=== PATIENT | female | born 1940 | race Caucasian/White ===

== ENCOUNTER 2024-10-21 01:18 | Observation (INO) | payer OTHER, SELFPAY ==
[2024-10-20 19:53] VITALS: BP 125/73
[2024-10-20 20:00] LABS: Glucose - Point of Care 81 mg/dl (70-99)
[2024-10-20 21:41] VITALS: BP 129/68
[2024-10-20 22:00] VITALS: BMI 19.4
[2024-10-20 22:01] VITALS: BP 120/68
[2024-10-20 22:18] LABS: % Basophils 0.5 % (0-2); % Eosinophils 1.2 % (0-6); % Immature Granulocytes 0.9 % (0-0.5); % Monocytes 8.2 % (1.7-9.3); % Neutrophils 62.2 % (42.2-75.2); Absolute Eosinophils 0.1 10^3/uL (0-0.7); Absolute Immature Granulocytes 0.1 10^3/uL (0-0.05); Absolute Monocytes 0.6 10^3/uL (0.1-0.6); Absolute Neutrophils 4.7 10^3/uL (1.4-6.5); Hematocrit 40.2 % (37.0-47.0); Mean Corp Hgb Conc. 34.8 g/dL (33.0-37.0); Mean Corpuscular Hgb 32.8 pg (27.0-31.0); Mean Corpuscular Volume 94.1 fL (81.0-99.0); Mean Platelet Volume 12.6 fL (7.4-10.4); Nucleated Red Blood Cells % 0 %; Platelet Count 121 10^3/uL (130-400); Red Blood Cell Count 4.27 10^6/uL (4.20-5.40); Red Cell Dist. Width 17.6 % (11.5-14.5); White Blood Cell Count 7.5 10^3/uL (4.8-10.8)
[2024-10-20 22:24] LABS: ALT (SGPT) < 10 U/L (0-35); AST (SGOT) 17 U/L (14-36); Albumin 4.3 g/dl (3.5-5.0); Alkaline Phosphatase 23 U/L (38-126); Blood Urea Nitrogen 11 mg/dl (7-17); Calcium 8.4 mg/dl (8.4-10.2); Carbon Dioxide 16 mmol/L (22-30); Chloride 104 mmol/L (98-107); Estimated Creatinine Clearance 51 ml/min; Glucose 111 mg/dl (70-99); Potassium 3.3 mmol/L (3.5-5.1); Sodium 140 mmol/L (135-145); Total Bilirubin 1.7 mg/dl (0.2-1.3); Total Protein 6.7 g/dl (6.3-8.2); eGFR > 60.00
--- NOTE | 2024-10-20 22:38 | EDRN ---
Pts son is Colin Gupta and his cell
[2024-10-20 22:55] VITALS: BP 109/60
[2024-10-20 22:55] LABS: Magnesium 2.2 mg/dl (1.6-2.3)
[2024-10-20 23:01] VITALS: BP 124/44
[2024-10-20 23:04] VITALS: BP 109/60; BP 80/68; BP 98/53; PULSE 61; PULSE 70; PULSE 87
--- NOTE | 2024-10-20 23:09 | ED.GENMED ---
History of Present Illness
General
Chief Complaint: Weakness
Source: patient and family (Son who is at bedside.)
Exam Limitations: none
Time Seen by Provider: 10/20/24 22:10
Nursing documentation reviewed up to this point in time: agreed with
History of Present Illness
History of Present Illness:
This is an 84-year-old woman who resides in an independent living apartment at [facility]. She has remote history of breast cancer 25 years ago treated with lumpectomy and local XRT. No history of recurrence. She has history of hypertension,
hypothyroidism, hyperlipidemia.
She presents with her son (a physician) who is concerned for progressive decline in functioning over the past year but much more so over the past few weeks. She has had loss of appetite, 30 pound weight loss over the past year, increased
forgetfulness, concerned that she has not been taking her medications and more recently over the past few weeks has had significant decline in functioning, significantly poor appetite and patient herself admits that overall not feeling well over the
past week or 2, feeling 'off'.
She admits to lightheadedness, generalized weakness that is much worse with standing. Son notes significant difficulty with ambulation however patient denies falls, denies loss of consciousness.
She denies pain. She admits to poor oral intake, loss of appetite but denies nausea or vomiting, denies diarrhea or constipation. She denies dysuria and urgency nor hematuria. She denies cough no shortness of breath, denies palpitations nor chest
pain. Her daily medications include levothyroxine, amlodipine,
Not maintained on anticoagulants.
She has been following with her primary care physician at [facility], recently ordered outpatient CT chest abdomen pelvis. No recent lab work within the past few weeks.
Her daily medications include: Levothyroxine, amlodipine, simvastatin. Son is unsure if she has been taking any of these medications.
Past History
Past History
ED Past Medical History: Cancer (Right breast cancer over 25 years ago treated with lumpectomy and local XRT), HTN, Hypercholesterolemia, Hypothyroidism and Other (Vertebral compression fracture 10 years ago related to fall.)
ED Past Surgical History: Gynecological (Right breast lumpectomy over 25 years ago) and Other (Thyroidectomy)
Social History
Tobacco: Non-smoker
Alcohol: None
Personal:
Living: assisted living (Independent living at [facility])
Employment: Retired
Family History
Family History: Other (Noncontributory)
Phy Exam
Physical Exam
Physical Exam:
GENERAL: 84-year-old woman, thin, frail, appears her stated age. Awake and alert, moderately hard of hearing, pleasant, overall appears in no acute distress. Son and [id number] are accompanying.
EYE: pupils equal and reactive. Mild crusting of left upper and lower eyelids. Anicteric
NECK: Supple, nontender, no meningismus, no significant adenopathy.
ENT: posterior pharynx is clear, oral mucosa is dry. TM clear b/l, nares patent.
CARDIAC: Regular rate and rhythm. 2/6 holosystolic murmur left sternal border. There is near resolved pale green ecchymotic patch left upper chest wall. No palpable tenderness. No crepitus.
LUNGS: Clear breath sounds bilaterally, no acute respiratory distress, no wheezes/rales/rhonchi
ABDOMEN: Soft, nondistended, without focal tenderness, no r/g, no cvat. normoactive BS.
BACK: No midline bony tenderness. Straight leg raising is negative bilaterally.
NEUROLOGICAL: Alert and oriented x3, no focal neuro deficits. Moderately hard of hearing. Motor strength is 5/5 bilaterally. Gross sensation is intact.
SKIN: Warm and dry, normal color, skin intact. No rash.
MUSCULOSKELETAL: No C/C/E. peripheral pulses are full and equal b/l. No palpable tenderness.
PSYCH: Normal and appropriate interaction.
Course
Orders/Labs/Results
Orders:
Orders
10/20/24 22:03
Complete Blood Count/With Diff Urgent
Comprehensive Metabolic Panel Urgent
Free T4 Urgent
Magnesium Urgent
Comment: ADD ON
TSH Reflex To Free T4 Urgent
10/20/24 22:11
Urinalysis Reflex To Culture Urgent
10/20/24 22:32
Orthostatic VS- Treatment ONCE
10/20/24 22:33
Add On- LAB Urgent
Tests Added?: Mg
Electrocardiogram (*1) Urgent
Reason for Study: Fatigue / Weakness
EKG- Treatment ONCE
10/20/24 22:34
CT Head W/o Iv Contrast Urgent
Comment:
Reason For Exam: gen weakness, dizziness
10/20/24 23:23
0.9% Sodium Chloride 1000 ml [Nss] 1,000 ml IV BOLUS
10/20/24 23:35
Levothyroxine [Synthroid] 100 mcg PO NOW STA
Potassium Chloride Powder [Klor-Con] 20 meq PO NOW STA
10/20/24 23:37
Potassium Chloride [KCl] 20 meq PO NOW STA
Abnormal Lab Results
10/20/24
22:03
MCH 32.8 H pg
(27.0-31.0)
RDW 17.6 H %
(11.5-14.5)
Plt Count 121 L 10^3/uL
(130-400)
MPV 12.6 H fL
(7.4-10.4)
Abs Immat Gran (auto) 0.1 H 10^3/uL
(0-0.05)
Immature Gran % 0.9 H %
(0-0.5)
Potassium 3.3 L mmol/L
(3.5-5.1)
Carbon Dioxide 16 L mmol/L
(22-30)
Glucose 111 H mg/dl
(70-99)
Total Bilirubin 1.7 H mg/dl
(0.2-1.3)
Alkaline Phosphatase 23 L U/L
(38-126)
TSH (Reflex) 25.40 H uIU/ml
(0.47-4.68)
Free T4 0.76 L ng/dl
(0.78-2.19)
10/20/24 22:03
10/20/24 22:03
Vital Signs
Initial and Last Documented VS:
Initial Vital Signs
Temp Pulse Resp BP Pulse Ox
97.4 F 74 20 125/73 95
10/20/24 19:53 10/20/24 19:53 10/20/24 19:53 10/20/24 19:53 10/20/24 19:53
Last Documented Vital Signs
Temp Pulse Resp BP Pulse Ox
97.4 F 74 17 124/44 99
10/20/24 19:53 10/20/24 23:01 10/20/24 23:01 10/20/24 23:01 10/20/24 22:55
MDM/Problems Addressed
Differential Diagnosis Includes:
Concern for dehydration, electrolyte abnormality, exacerbation of thyroid disease, CVA, UTI, less likely recurrent breast cancer.
Labs are pending including TSH.
Will check CT of the head and check orthostatic vital signs.
Clinically, patient appears moderately dehydrated and history concerning for, at least more recently, orthostasis.
Although notes no falls nor syncope she does have subacute/near resolved ecchymotic patch left upper chest wall. I have significant concern for acute ambulatory dysfunction, concern for significant risk for fall.
If orthostatic vital signs are negative and labs are reassuring we will assess ambulatory dysfunction.
Chronic conditions affecting care: HTN, Cancer and Other (Hypothyroid)
*Radiology
Radiology exam reviewed: radiology read reviewed
*Pulse Oximetry
Patient hypoxic: no
*EKG
Interpreted by ED Provider?: Yes
Comparison EKG: no comparison EKG present
Rate: normal
Rhythm: sinus
[place]: left axis deviation
QRS Pattern: right bundle branch block
Ischemia: no ischemia
*Critical Care Note
Total Time (30-74mins, 75-104mins- exclusive of procedures): Not Applicable
Update Note
Update Note:
23:50
Patient is significantly orthostatic with blood pressure dropping to 80 upon standing, symptomatic upon standing.
Labs are remarkable for mild hypokalemia. Moderately elevated TSH of 25.
CT of the head shows no acute intracranial findings. Vascular calcifications, moderate atrophy.
As above, clinically appears dehydrated which is consistent with patient's history of poor appetite/poor oral intake. I suspect exacerbated by hypothyroidism.
IV fluids initiated. Will replete potassium orally and will give an oral dose of Synthroid now.
Will admit to hospitalist service.
Patient will require social service evaluation as I suspect she will require assistance upon returning to [facility].
ED Attending Note
-
Portions of this chart may have been created with voice recognition software.� Occasional wrong word or��sound alike� substitutions may have occurred due to the inherent limitations of voice recognition software.
Discharge Plan
Departure
Patient Disposition: Admit
Date of Disposition: 10/20/24
Time of Disposition: 23:54
Admit to: Med/Surg
Admit to doctor: Devante
Presentation/result/management discussed w/ accepting MD/DO: Hospitalist
Condition: Fair
Discharge Problem:
Acute dehydration, Orthostatic hypotension, acute ambulatory dysfunction, acute exacerbation of hypothyroid, Acute hypokalemia, Medication noncompliance due to cognitive impairment
Interventions
Interventions:
*Risk Screen - Suicide Last Done: 10/20/24 19:53
*Neglect/Abuse Screening Last Done: 10/20/24 19:53
*ED- Fall Risk Assessment Last Done: 10/20/24 19:53
ED- Cardiac Assessment Last Done: 10/20/24 23:06
ED- Neurological Assessment Last Done: 10/20/24 23:06
ED- Pulmonary Assessment Last Done: 10/20/24 23:06
Discharge Date and Time
Print Language: KAZAKH
[2024-10-20 23:24] LABS: Free T4 0.76 ng/dl (0.78-2.19)
[2024-10-20] MEDS: NSS 1000 IV (23:24)
[2024-10-21] VITALS (8 sets, daily range): BP systolic 85–132; BP diastolic 48–75; PULSE 62–65; O2SAT 100; BMI 18.0
[2024-10-21] MEDS: SYNTHROID 100 MCG PO ×2 (00:03→02:54)
[2024-10-21] MEDS: KCL 20 MEQ PO (00:03)
--- NOTE | 2024-10-21 00:38 | HPS.HSE ---
Family Physician
-
Family Physician: Lise Elise
Chief Complaint
-
Weakness
History of Present Illness
This is a 84-year-old female past medical history significant for tension, hypothyroid, history of breast cancer infected ago treated with lumpectomy and XRT presenting to the emergency department from [facility] with subacute to weakness.
According to notes patient has a progressive slow decline over 1 year but over the last few weeks has had significant decline with poor appetite and no weight loss. She has also has increased forgetfulness. She did endorse that she has not been
taking her medications regularly because she often forgets to take them. She does not remember the last time she actually took her levothyroxine. Patient reports no nausea or vomiting. She denies any diarrhea. She denies any urinary symptoms.
She denies fevers or chills. She denies any cough. She has no focal weakness. She endorsed feeling dizzy and lightheaded occasionally. She denies any chest pain or palpitations. In the ED she appeared dry and was orthostatic with standing.
Vital signs showed a supine blood pressure of 124/44 with heart rate of 74 satting 99% on room air. ECG shows normal sinus rhythm at 61 with right bundle.
CBC was normal. Electrolytes were notable for potassium of 3.3, bicarb of 16 and a normal BUN and creatinine.
TSH was elevated at 25, free T4 was low at 0.7. Head CT negative for any acute intracranial process.
Medical History
Past Medical History
Past Medical History: Reports Cancer (Breast cancer status post lumpectomy and XRT), Hypercholesterolemia and Hypothyroidism
Past Surgical History: Reports Other (Right breast lumpectomy, thyroidectomy)
Social History
Tobacco: Non-smoker
Alcohol: None
Drug: None
Personal: Single
Living: Assisted Living
Employment: Retired
Family History
Family History: Not pertinent
Allergies / Home Medications
Allergies reflects when Allergies were last updated in [facility].
Home Medications with original date entered in [facility]
Allergy/Medication List:
Allergies
Allergy/AdvReac Type Severity Reaction Status Date / Time
No Known Allergies Allergy Unverified 10/20/24 19:53
Home Medications
amlodipine 2.5 mg tablet 2.5 mg PO DAILY 10/20/24
levothyroxine 88 mcg tablet 88 mcg PO DAILY 10/20/24
simvastatin 20 mg tablet 20 mg PO DAILY 10/20/24
Review of Systems
-
History Source: Patient
Constitutional: Reports Fatigue
EENT: Reports No Symptoms
Respiratory: Reports No Symptoms
Cardiac: Reports No Symptoms
Abdomen/GI: Reports No Symptoms
: Reports No Symptoms
Musculoskeletal: Reports No Symptoms
Skin: Reports No Symptoms
Neurological: Reports No Symptoms
Endocrine: Reports No Symptoms
Hematologic/Lymphatic: Reports No Symptoms
Psych: Reports No Symptoms
Physical Exam
Vital Signs
Vital Signs
Temp Pulse Resp BP Pulse Ox
97.4 F 74 17 124/44 99
10/20/24 19:53 10/20/24 23:01 10/20/24 23:01 10/20/24 23:01 10/20/24 22:55
Physical Exam
General: No Apparent Distress, Comfortable, Conversant and Poor Appetite
HEENT: NormoCephalic, Anicteric, Moist mucous membranes, Atraumatic and PERRLA
Respiratory: Clear
Cardiac: S1/S2 and Regular Rhythm
Breast: Deferred by me
GI: Soft, Non Tender, Non Distended and Normal Bowel Sounds
Rectal: Deferred by Provider
Genito-urinary: Deferred by me
Musculoskeletal: No Clubbing, No Cyanosis and No Edema
Skin: Warm
Neuro: AO x 3 and Nonfocal/grossly intact
Hematologic/Lymphatic: No Lymphadenopathy
Psych: Calm
Laboratory Results
-
10/20/24 22:03
10/20/24 22:03
Laboratory Results
Total Bilirubin 1.7 mg/dl (0.2-1.3) H 10/20/24 22:03
AST 17 U/L (14-36) 10/20/24 22:03
ALT < 10 U/L (0-35) 10/20/24 22:03
Alkaline Phosphatase 23 U/L (38-126) L 10/20/24 22:03
Data Reviewed
-
CT Scan: Report Reviewed by me
Lab Data: Labs Reviewed by me
Old Records: Reviewed
Impression/Plan
-
IMPRESSION:
84-year-old female with past medical history of hypertension, hyperlipidemia, hypothyroid secondary to thyroidectomy, history of breast status post lumpectomy done 5 years ago with XRT who presents to the emergency department with subacute decline
in mental status and weakness. Patient has been having decreased appetite and weight loss for several weeks. She has no fluid losses in terms of diarrhea nausea or vomiting. She had no fever or chills. She has been more forgetful and has not
been taking her medications as prescribed. She does not remember the last time she took her levothyroxine for instance. In the ED she was dry and orthostatic and was found to have acute hypothyroid. She is not in myxedema.
PLAN:
Hypothyroid w/o myxedema - 2/2 non-compliance. 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
- admit to med/surg
- restart patients levothyroxine at 100 mcg daily, repeat tsh in 2 - 3 weeks
- since no myxedema, hold off on steroids, check am cortisol
- pt eval for placement in high level of care
- case management
Hypovolemia - orthostatic and weak. She is dehydrated with hypokalemia from low po intake.
- hold amlodipine
- IV fluids
- check orthostatics in am
- supplemental nutrition
- replete K, Mag
- check u/a
DVT PPX - heparin sq
Code status - Full Code
--- NOTE | 2024-10-21 02:32 | PTCARENOTE ---
Pt arrived onto floor @0232. Pt AAOx3 and able to walk into room with assistance. Pt with no complaints of pain or SOB at this time. Pt oriented to room and call burt; will continue to monitor
[2024-10-21] MEDS: NSS 1000 IV ×2 (02:54→17:45)
[2024-10-21 08:35] LABS: Blood Urea Nitrogen 9 mg/dl (7-17); Calcium 7.2 mg/dl (8.4-10.2); Carbon Dioxide 22 mmol/L (22-30); Chloride 109 mmol/L (98-107); Estimated Creatinine Clearance 52 ml/min; Glucose 58 mg/dl (70-99); Magnesium 2.1 mg/dl (1.6-2.3); Potassium 3.3 mmol/L (3.5-5.1); Sodium 142 mmol/L (135-145); eGFR > 60.00
[2024-10-21 08:50] LABS: % Basophils 0.5 % (0-2); % Eosinophils 2.1 % (0-6); % Immature Granulocytes 0.6 % (0-0.5); % Lymphocytes 31.8 % (20.5-51.1); % Monocytes 8.7 % (1.7-9.3); % Neutrophils 56.3 % (42.2-75.2); Absolute Eosinophils 0.1 10^3/uL (0-0.7); Absolute Monocytes 0.5 10^3/uL (0.1-0.6); Absolute Neutrophils 3.5 10^3/uL (1.4-6.5); Hematocrit 32.3 % (37.0-47.0); Hemoglobin 11.5 g/dL (12.0-16.0); Mean Corp Hgb Conc. 35.6 g/dL (33.0-37.0); Mean Corpuscular Hgb 33.3 pg (27.0-31.0); Mean Corpuscular Volume 93.6 fL (81.0-99.0); Nucleated Red Blood Cells % 0 %; Red Blood Cell Count 3.45 10^6/uL (4.20-5.40); Red Cell Dist. Width 17.3 % (11.5-14.5); White Blood Cell Count 6.2 10^3/uL (4.8-10.8)
[2024-10-21] MEDS: KLOR-CON 40 MEQ PO (09:02)
[2024-10-21] MEDS: LIPITOR 10 MG PO (09:02)
[2024-10-21] MEDS: HEPARIN 5000 UNITS SC ×2 (09:02→19:42)
[2024-10-21 09:35] LABS: ALT (SGPT) < 10 U/L (0-35); AST (SGOT) 16 U/L (14-36); Albumin 3.2 g/dl (3.5-5.0); Alkaline Phosphatase 21 U/L (38-126); Direct Bilirubin 0.5 mg/dl (0.0-0.4); Total Bilirubin 1.3 mg/dl (0.2-1.3); Total Protein 5.3 g/dl (6.3-8.2)
--- NOTE | 2024-10-21 10:07 | W.PN.HOSP.TC ---
Today's Communication/Plan
-
see PN
Assessment / Plan
Assessment / Plan
84yo F with PMHx of HLD, hypothyroidism, HTN brought from [facility] with worsening weakness and poor oral intake, found significantly hypothyroid without mixedema coma. C/O absent appetite and generally feeling unwell. Hypovolemia with hypotension
on admission. As per family - unintended weight loss of 30lbs over the past few months
A/P:
#Progressive weakness, weight loss and appetite loss
No localizing symptoms as per patient
encourage diet
provide ensure
no high albumin/protein ratio
no reported Hx of CA
Encourage age appropriate CA screening
check cortisol
Chest XR without acute cardiopulmonary findings
check UA
Patient does not report depression
#hypoglycemia
2/2 poor oral intake
Dextrose PRN, accuchecks AC+HS
#Protein calorie malnutrition
BMI 18.0
Ensure supplements
#Isolated thrombocytopenia
monitor CBC
#Bilirubinemia on admission
without abdominal pain
resolved on hydration
#Hypotension with hypovolemia
Hydrate
Hold Norvasc
#hypokalemia
replete and follow
#Poorly controlled hypothyroidism
Encourage Synthroid, increase dose, repeat TSH in 3-4 weeks
#HLD
cont simvastatin
DVT ppx hep
FUll code
I have spent at least 56min reviewing chart, test reuslts, communication with consultants and providing direct patient care
Anticipated Discharge: 24 - 48 hours
Subjective/Interval History
-
Date of Service: October 21, 2024
Objective Data
-
Labs:
Laboratory Results
10/20/24 10/21/24 10/21/24
22:03 06:32 08:08
WBC 7.5 6.2
Hgb 14.0 11.5 L
Hct 40.2 32.3 L
Plt Count 121 L Pending
Sodium 140 142
Potassium 3.3 L 3.3 L
Chloride 104 109 H
Carbon Dioxide 16 L 22
BUN 11 9
Creatinine 0.6 0.6
Glucose 111 H 58 L
Calcium 8.4 7.2 L
Total Bilirubin 1.7 H 1.3
AST 17 16
ALT < 10 < 10
Alkaline Phosphatase 23 L 21 L
Vital Signs:
Vital Signs
Temp Pulse Resp BP Pulse Ox
98.6 F 62 18 88/48 98
10/21/24 07:26 10/21/24 07:26 10/21/24 07:26 10/21/24 07:26 10/21/24 07:26
Review of Systems
-
History Source: Patient
All other systems: Reviewed and negative
Constitutional: Reports No Appetite, Fatigue and Weakness
Physical Exam
-
General: No Apparent Distress and Comfortable
HEENT: Normocephalic
Respiratory: Clear to Auscultation
GI: Soft
Genito-urinary: No Costovertebral Tender
Musculoskeletal: No Clubbing, No Cyanosis and No Edema
Skin: Warm
Neuro: Awake, Alert, Oriented and AO x 3
Psych: Calm
[2024-10-21 10:16] LABS: Mean Platelet Volume 12.5 fL (7.4-10.4); Platelet Count 83 10^3/uL (130-400)
[2024-10-21] MEDS: NSS 500 IV (10:28)
--- NOTE | 2024-10-21 10:37 | CON.ONC ---
Consultation
-
Date Consultation Requested: 10/21/24
Date Consultation Performed: 10/21/24
Requesting Provider: Campbell Dockery
Performing Provider: Dr. Badillo
Reason for Consultation: Dr. Badillo
Impression
Impression
weakness
thrombocytopenia
vitamin B deficiency
normocytic anemia
hypothyroid
dehydration
Plan
Plan
check DIC, LA, monitor for infection
caution antiplatelet, anticoagulation, NSAIDs for platelet count <50,000
mild normocytic anemia may be dilutional with IVF for dehydration, though, will check iron studies, retic, and heme stool for completeness
check ab US
vitamin B deficiency can contribute to thrombocytopenia. Normal folate. B12 supplement ordered. can transition to vitamin B12 1000mcg SL daily at discharge. Repeat B12 should be monitored by her PCP in 12 weeks.
thyroid disease can be associated with thrombocytopenia -Hypothyroidism can cause thrombocytopenia due to reduced platelet production.
Patient History
History of Present Illness
84yo F presented to 10/20 from [facility] with weakness. She reports weakness has been progressive, however, now with poor appetite and increasing forgetfulness. She tells me that she takes 'medications, supplements, and vitamins' but unable to
recall names, how long she has been taking, or last doses. She reports occasional postural dizziness. Admission labs are notable for platelet count 121,000 that has trended down to 83,000 today. She denies history of thrombocytopenia.
Clinically, she denies fever, chills, cough, sob at rest, chest pain, palpitations, n/v/d/c or abdominal pain. She denies any overt bleeding or atypical bruising.
Past-Medical/Surgical History
PMH remote Breast cancer status post lumpectomy and XRT, Hypercholesterolemia and Hypothyroidism
Past Surgical History: Right breast lumpectomy, thyroidectomy
Social non-smoker, denies ETOH or recreational drugs. Retired.
Family unknown
Patient Medication
�Medication �Instructions �Recorded �Confirmed �Last Taken �Type
amlodipine 2.5 mg tablet 2.5 mg PO DAILY 10/20/24 10/20/24 Unknown History
levothyroxine 88 mcg tablet 88 mcg PO DAILY 10/20/24 10/20/24 Unknown History
simvastatin 20 mg tablet 20 mg PO DAILY 10/20/24 10/20/24 Unknown History
simvastatin 20 mg tablet 20 mg PO DAILY 10/20/24 10/20/24 Unknown History
Active Medications
Generic Name Dose Route Start Last Admin
Trade Name Freq PRN Reason Stop Dose Admin
Acetaminophen 650 mg 10/21/24 02:20
Acetaminophen 325 Mg Tablet PO 11/18/24 02:19
Q4HPRN PRN
mild pain/TUTTLE/temp> 100.4F
Atorvastatin Calcium 10 mg 10/21/24 08:00 10/21/24 09:02
Atorvastatin (Lipitor) 10 Mg Tablet PO 11/18/24 07:59 10 mg
DAILY HERMAN Administration
Bisacodyl 10 mg 10/21/24 02:20
Bisacodyl 10 Mg Rectal Suppository RECTAL 11/18/24 02:19
[id number] PRN
constipation
Dextrose 12.5 grams 10/21/24 10:03
Dextrose 50% (0.5 Grams/Ml) 50 Ml Syringe IV 11/18/24 10:02
[id number] PRN
hypoglycemia
Protocol
Glucagon 1 mg 10/21/24 10:03
Glucagon 1 Mg Vial IM 11/18/24 10:02
PRN PRN
hypoglycemia
Protocol
Heparin Sodium 5,000 units 10/21/24 08:00 10/21/24 09:02
Heparin 5,000 Units/Ml 1 Ml Vial SC 11/18/24 07:59 5,000 units
Q12 HERMAN Administration
Sodium Chloride 1,000 mls @ 100 mls/hr 10/21/24 02:20 10/21/24 02:54
Nss IV 1,000 mls
.Q10H HERMAN Administration
Levothyroxine Sodium 100 mcg 10/21/24 06:00 10/21/24 02:54
Levothyroxine 100 Mcg Tablet PO 11/18/24 05:59 100 mcg
DAILY @ 0600 HERMAN Administration
Multivitamins Therapeutic 1 tablet 10/22/24 08:00
Multivitamin Tablet PO 11/19/24 07:59
DAILY HERMAN
Ondansetron HCl 4 mg 10/21/24 02:20
Ondansetron 4 Mg/2 Ml Vial IV 11/18/24 02:19
Q6HPRN PRN
nausea and vomiting
Polyethylene Glycol 17 grams 10/21/24 02:20
Polyethylene Glycol Powder 17 Grams Packet PO 11/18/24 02:19
DAILYPRN PRN
constipation
Senna/Docusate Sodium 1 tablet 10/21/24 02:20
Docusate W/Senna (Nisreen-Colace) Tablet PO 11/18/24 02:19
BIDPRN PRN
constipation
Sodium Chloride 0 flush 10/21/24 03:00
Sodium Chloride 0.9% (Flush) Syringe IV 11/18/24 02:59
PER PROTOCOL HERMAN
Review of Systems
-
ROS is notable for HPI, otherwise negative
Physical Exam
-
General: No Apparent Distress, Comfortable, Conversant , thin
HEENT: Moist mucous membranes, Atraumatic
Respiratory: Clear
Cardiac: S1/S2 and Regular Rhythm
GI: Soft, Non Tender, Non Distended
Skin: Warm
Neuro: AO x 3, speech clear, ambulating with a cane
Psych: Calm and cooperative
Labs
Lab Results
WBC 6.2 10^3/uL (4.8-10.8) 10/21/24 08:08
RBC 3.45 10^6/uL (4.20-5.40) L 10/21/24 08:08
Hgb 11.5 g/dL (12.0-16.0) L 10/21/24 08:08
Hct 32.3 % (37.0-47.0) L 10/21/24 08:08
MCV 93.6 fL (81.0-99.0) 10/21/24 08:08
MCH 33.3 pg (27.0-31.0) H 10/21/24 08:08
MCHC 35.6 g/dL (33.0-37.0) 10/21/24 08:08
RDW 17.3 % (11.5-14.5) H 10/21/24 08:08
Plt Count 83 10^3/uL (130-400) L D 10/21/24 08:08
MPV 12.5 fL (7.4-10.4) H 10/21/24 08:08
Abs Immat Gran (auto) 0.0 10^3/uL (0-0.05) 10/21/24 08:08
Absolute Neuts (auto) 3.5 10^3/uL (1.4-6.5) 10/21/24 08:08
Absolute Lymphs (auto) 2.0 10^3/uL (1.2-3.4) 10/21/24 08:08
Absolute Monos (auto) 0.5 10^3/uL (0.1-0.6) 10/21/24 08:08
Absolute Eos (auto) 0.1 10^3/uL (0-0.7) 10/21/24 08:08
Absolute Basos (auto) 0.0 10^3/uL (0-0.2) 10/21/24 08:08
Immature Gran % 0.6 % (0-0.5) H 10/21/24 08:08
Neutrophils % 56.3 % (42.2-75.2) 10/21/24 08:08
Lymphocytes % 31.8 % (20.5-51.1) 10/21/24 08:08
Monocytes % 8.7 % (1.7-9.3) 10/21/24 08:08
Eosinophils % 2.1 % (0-6) 10/21/24 08:08
Basophils % 0.5 % (0-2) 10/21/24 08:08
Creatinine 0.6 mg/dL (0.6-1.0) 10/21/24 06:32
Vital Signs
Vital Signs
Temp Pulse Resp BP Pulse Ox
98.6 F 62 18 88/48 98
10/21/24 07:26 10/21/24 07:26 10/21/24 07:26 10/21/24 07:26 10/21/24 07:26
[2024-10-21 10:55] LABS: Cortisol, Random 8.8 ug/dl
[2024-10-21 11:42] LABS: Folate 4.6 ng/ml (2.76-20); Vitamin B12 214 pg/ml (239-931)
[2024-10-21 12:23] LABS: Reticulocyte Count 1.1 % (0.4-2.8)
[2024-10-21 12:31] LABS: Iron 62 ug/dl (37-170)
[2024-10-21 12:40] LABS: Percent Saturation 36 % (20-50); Total Iron Binding Capacity 168 ug/dl (265-497)
[2024-10-21] MEDS: VITAMIN B1 100 MG PO (12:46)
[2024-10-21] MEDS: CYANOCOBALAMIN 1000 MCG IM (12:46)
[2024-10-21] MEDS: FOLVITE 1 MG PO (12:46)
--- NOTE | 2024-10-21 15:16 | CM ---
Patient seen bedside, initial assessment completed. Patient is a 84-year-old female past medical history significant for tension, hypothyroid, history of breast cancer infected ago treated with lumpectomy and XRT presenting to the emergency
department from [facility] with subacute to weakness.
Patient resides alone in a 3rd flr independent living apartment at [facility]- elevator access. Ambulates w/ a cane, independent w/ ADLs.
Denies SNF/HC hx.
Address, point of contact and insurance verified.
PCP: Lise Elise
Pharmacy: [facility]
Therapy assessed patient, recommending skilled rehab at d/c. Patient agreeable to [facility] rehab
Patient currently admitted obs. [facility] form verbally reviewed, copy given to patient, copy on chart
Per [employer] rep, patient is not a [employer] member so she does not qualify for Medicare waiver for rehab.
Plan: SNF recommended
[2024-10-22 00:18] VITALS: BP 99/58
[2024-10-22] MEDS: NSS 1000 IV (03:49)
[2024-10-22] MEDS: SYNTHROID 100 MCG PO (06:11)
[2024-10-22 07:00] VITALS: BP 94/50
--- NOTE | 2024-10-22 08:13 | W.PN.ONC2 ---
Today's Communication / Plan
-
.
Impression
Impression
weakness
thrombocytopenia, no evidence of acute DIC. No liver or spleen abnormalities on US
vitamin B deficiency
normocytic anemia
hypothyroid
dehydration
Plan
Plan
f/u [place]
monitor for infection
caution antiplatelet, anticoagulation, NSAIDs for platelet count <50,000
vitamin B deficiency can contribute to thrombocytopenia. Normal folate. B12 supplement ordered. can transition to vitamin B12 1000mcg SL daily at discharge. Repeat B12 should be monitored by her PCP in 12 weeks.
thyroid disease can be associated with thrombocytopenia -Hypothyroidism can cause thrombocytopenia due to reduced platelet production.
With platelets stable >100,000, no further hematology inpatient recommendations. Once hypothyroid and B12 deficiency normalize, if thrombocytopenia persists then can refer to decal cutter outpatient.
Hematology will sign off, please reach out for any questions or concerns.
Subjective/Objective
Subjective
no new complaints
feeling better
Vital Signs:
Vital Signs
Temp Pulse Resp BP Pulse Ox
98.0 F 60 20 99/58 98
10/21/24 23:30 10/21/24 23:30 10/21/24 23:30 10/21/24 23:30 10/21/24 23:30
Lab Results:
Laboratory Data
WBC 6.2 10^3/uL (4.8-10.8) 10/21/24 08:08
Hgb 11.5 g/dL (12.0-16.0) L 10/21/24 08:08
Plt Count 83 10^3/uL (130-400) L D 10/21/24 08:08
eGFR > 60.00 10/21/24 06:32
Physical Exam
HEENT: Moist Mucous Membranes; No Jaundice
Cardiology: Normal Sinus Rhythm
Pulmonary: Clear
GI: Soft
Extremities: Pulses Present; No Edema
Neuro: Non Focal
Orders
Orders
Orders From Last 24 Hours
10/21/24 11:51
Add On- LAB Routine
Stool for occult blood [Hemetest Stools] As Directed
10/21/24 12:00
Cyanocobalamin 1,000 mcg IM DAILY
10/22/24 06:00
Fibrinogen IN AM
INR [Prothrombin Time] IN AM
Lupus Anticoagulant Panel Refl [S] IN AM
PTT IN AM
10/22/24 10:47
US Abdomen Complete/Upper Routine
[2024-10-22] MEDS: VITAMIN B1 100 MG PO (08:22)
[2024-10-22] MEDS: THERAGRAN 1 TABLET PO (08:22)
[2024-10-22] MEDS: LIPITOR 10 MG PO (08:22)
[2024-10-22] MEDS: FOLVITE 1 MG PO (08:22)
[2024-10-22] MEDS: CYANOCOBALAMIN 1000 MCG IM (08:23)
[2024-10-22] MEDS: HEPARIN SC (08:30)
[2024-10-22 08:46] LABS: Glucose - Point of Care 69 mg/dl (70-99)
[2024-10-22 09:09] LABS: Glucose - Point of Care 65 mg/dl (70-99)
[2024-10-22 09:16] LABS: % Basophils 0.5 % (0-2); % Eosinophils 2.1 % (0-6); % Immature Granulocytes 0.8 % (0-0.5); % Lymphocytes 29.3 % (20.5-51.1); % Monocytes 7.2 % (1.7-9.3); % Neutrophils 60.1 % (42.2-75.2); Absolute Eosinophils 0.1 10^3/uL (0-0.7); Absolute Immature Granulocytes 0.1 10^3/uL (0-0.05); Absolute Lymphocytes 1.8 10^3/uL (1.2-3.4); Absolute Monocytes 0.4 10^3/uL (0.1-0.6); Absolute Neutrophils 3.7 10^3/uL (1.4-6.5); Hematocrit 36.2 % (37.0-47.0); Hemoglobin 12.4 g/dL (12.0-16.0); Mean Corp Hgb Conc. 34.3 g/dL (33.0-37.0); Mean Corpuscular Hgb 33.1 pg (27.0-31.0); Mean Corpuscular Volume 96.5 fL (81.0-99.0); Mean Platelet Volume 12.3 fL (7.4-10.4); Nucleated Red Blood Cells % 0 %; Platelet Count 113 10^3/uL (130-400); Red Blood Cell Count 3.75 10^6/uL (4.20-5.40); Red Cell Dist. Width 17.6 % (11.5-14.5); White Blood Cell Count 6.2 10^3/uL (4.8-10.8)
[2024-10-22 09:21] LABS: Fibrinogen 288 MG/DL (199-459); INR 1.12; PT 14.7 Sec (11.4-14.6)
[2024-10-22 09:22] LABS: APTT 39.7 Sec (23.4-35.0)
[2024-10-22 09:50] LABS: Glucose - Point of Care 81 mg/dl (70-99)
[2024-10-22] MEDS: NSS IV (10:28)
--- NOTE | 2024-10-22 10:33 | W.PN.HOSP.TC ---
Today's Communication/Plan
-
UA
CM for rehab
Assessment / Plan
Assessment / Plan
84yo F with PMHx of HLD, hypothyroidism, HTN brought from [facility] with worsening weakness and poor oral intake, found significantly hypothyroid without mixedema coma. C/O absent appetite and generally feeling unwell. Hypovolemia with hypotension
on admission. As per family - unintended weight loss of 30lbs over the past few months
A/P:
#Progressive weakness, weight loss and appetite loss
No localizing symptoms as per patient
encourage diet
provide ensure
no high albumin/protein ratio
no reported Hx of CA
Encourage age appropriate CA screening
cortisol 8.8 - no need in additional steroids, recheck cortisol in 3-4 weeks whren TSH improved
Chest XR without acute cardiopulmonary findings
check UA
Patient does not report depression
#hypoglycemia
2/2 poor oral intake
Dextrose PRN, accuchecks AC+HS
#Protein calorie malnutrition
BMI 18.0
Ensure supplements
#Vit B deficiency
replete
multivitamin
monitor b12 q12w as outpatient
#Isolated thrombocytopenia
monitor CBC
Hematology consult:
US RUQ without acute hepatic findings
No overt DEBBIE
FOBT pending
#Bilirubinemia on admission
without abdominal pain
resolved on hydration
#Hypotension with hypovolemia
Hydrate
Hold Norvasc
#hypokalemia
replete and follow
#Poorly controlled hypothyroidism
Encourage Synthroid, increase dose, repeat TSH in 3-4 weeks
#HLD
cont simvastatin
DVT ppx hep
FUll code
I have spent at least 36min reviewing chart, test results, communication with consultants and providing direct patient care
Anticipated Discharge: Within 24 hours
Subjective/Interval History
-
Date of Service: October 22, 2024
Objective Data
-
Labs:
Laboratory Results
10/22/24
08:55
WBC 6.2
Hgb 12.4
Hct 36.2 L
Plt Count 113 L D
PT 14.7 H
INR 1.12
APTT 39.7 H
Sodium Pending
Potassium Pending
Chloride Pending
Carbon Dioxide Pending
BUN Pending
Creatinine Pending
Glucose Pending
Calcium Pending
Total Bilirubin Pending
AST Pending
ALT Pending
Alkaline Phosphatase Pending
Vital Signs:
Vital Signs
Temp Pulse Resp BP Pulse Ox
97.6 F 59 19 94/50 97
10/22/24 07:00 10/22/24 07:00 10/22/24 07:00 10/22/24 07:00 10/22/24 07:00
I&O
10/21/24 10/22/24 10/23/24
06:59 06:59 06:59
Intake Total 960 / 960 1180 / 1180
Balance 960 / 960 1180 / 1180
Review of Systems
-
History Source: Patient
All other systems: Reviewed and negative
Physical Exam
-
General: No Apparent Distress
HEENT: Normocephalic
Respiratory: Clear to Auscultation
Cardiac: Regular Rhythm
GI: Soft, Nontender and Nondistended
Genito-urinary: No Costovertebral Tender
Musculoskeletal: No Clubbing, No Cyanosis and No Edema
Neuro: Awake, Alert and Oriented
Psych: Calm
[2024-10-22 11:13] LABS: ALT (SGPT) < 10 U/L (0-35); AST (SGOT) 18 U/L (14-36); Albumin 3.7 g/dl (3.5-5.0); Alkaline Phosphatase 24 U/L (38-126); Blood Urea Nitrogen 5 mg/dl (7-17); Carbon Dioxide 19 mmol/L (22-30); Chloride 108 mmol/L (98-107); Estimated Creatinine Clearance 52 ml/min; Glucose 78 mg/dl (70-99); Magnesium 1.7 mg/dl (1.6-2.3); Phosphorus 1.6 mg/dl (2.5-4.5); Potassium 3.3 mmol/L (3.5-5.1); Sodium 139 mmol/L (135-145); Total Bilirubin 1.2 mg/dl (0.2-1.3); Total Protein 5.6 g/dl (6.3-8.2); eGFR > 60.00
[2024-10-22 11:22] VITALS: BP 94/50; PULSE 59
[2024-10-22 11:29] LABS: Urine Albumin Negative (Neg - Trace); Urine Bilirubin Negative (Negative); Urine Character Clear (Clear); Urine Color Yellow; Urine Glucose Negative (Negative); Urine Ketone 3+ (Negative); Urine Leukocyte Negative (Negative); Urine Nitrite Negative (Negative); Urine Occult Blood Negative (Negative); Urine Specific Gravity 1.015 (<1.030); Urine Urobilinogen Negative (Neg - 1+)
[2024-10-22] MEDS: POTASSIUM PHOSPHATE 259.0909 MEQ IV (11:44)
--- NOTE | 2024-10-22 12:08 | CM ---
Addendum entered by Ignacio Arcos 10/22/24 16:06:
Patient's son does not want [facility]. CM will need to refer to additional places.
[facility], no beds
[facility], no beds. Per [facility] can be offered
CM will need to update auth once new facility is located
Addendum entered by Ignacio Arcos 10/22/24 15:53:
Auth approved beginning today, 10/22, w/ next review date on 10/26. Facility to fax updates to [phone]
Info provided to [facility], can accept patient tomorrow as hospitalist has signed off for the day and suggesting d/c early in the AM
COVID test will need to be ordered prior to d/c
Updated sonColin
Addendum entered by Ignacio Arcos 10/22/24 14:28:
Per [facility], patient can be offered a bed today or tomorrow, depending on when auth determination gets back
CM called [facility] ([phone]) to initiate auth. Spoke w/ Rosa, requested clinicals to be faxed to be reviewed
CM faxed clinicals to [phone], pending ref [id number]
Patient will need ambulance at d/c
Original Note:
CM confirmed patient's insurance, patient has primary Medicare and [employer] as secondary. Patient will need prior auth for skilled rehab.
Placed call to [facility], confirmed that [employer] can cover rehab w/ an approved auth
Spoke w/ [facility], no available beds today or over the weekend
Spoke w/ patient's sonColin, to discuss rehab recommendation and inquire on any facilities that patient can potentially d/c to. Per Colin, he is not familiar w/ any facilities and agreeable to CM referring to facilities close to [facility]. Colin
would like to be notified once a facility is located and accepted patient. CM sent additional referrals in [facility] for review.
Plan: SNF, pending accepting facility and auth approval
[2024-10-22 12:10] LABS: Glucose - Point of Care 117 mg/dl (70-99)
--- NOTE | 2024-10-22 12:13 | PTCARENOTE ---
Patient voiding in bathroom with standby assist with cane. UA sent per order. Magnesium and potassium IVPB replacement being administered per order. Patient has good po food and liquid intake today. POC glucose was low in am but now is within normal
limits.
[2024-10-22 15:08] VITALS: BP 126/66
[2024-10-22] MEDS: MAGNESIUM SULFATE 50 IV (16:12)
[2024-10-22 16:14] VITALS: BP 122/70; BP 127/64; BP 127/68; PULSE 102; PULSE 81; PULSE 88
[2024-10-22 17:13] LABS: Glucose - Point of Care 161 mg/dl (70-99)
[2024-10-22] MEDS: HEPARIN 5000 UNITS SC (19:19)
[2024-10-22 20:53] LABS: Glucose - Point of Care 126 mg/dl (70-99)
[2024-10-22 23:41] VITALS: BP 119/71
[2024-10-23] MEDS: SYNTHROID 100 MCG PO (05:09)
[2024-10-23 07:00] VITALS: BP 121/70; BP 122/77; BP 123/64; PULSE 100; PULSE 66; PULSE 83
[2024-10-23 07:59] LABS: Glucose - Point of Care 89 mg/dl (70-99)
[2024-10-23] MEDS: CYANOCOBALAMIN 1000 MCG IM (09:42)
[2024-10-23] MEDS: FOLVITE 1 MG PO (09:42)
[2024-10-23] MEDS: THERAGRAN 1 TABLET PO (09:42)
[2024-10-23] MEDS: VITAMIN B1 100 MG PO (09:42)
[2024-10-23] MEDS: LIPITOR 10 MG PO (09:42)
[2024-10-23] MEDS: HEPARIN 5000 UNITS SC ×2 (09:43→19:27)
[2024-10-23 11:12] LABS: Glucose - Point of Care 152 mg/dl (70-99)
--- NOTE | 2024-10-23 11:24 | W.PN.HOSP.TC ---
Today's Communication/Plan
-
medically stable for d/c
Assessment / Plan
Assessment / Plan
84yo F with PMHx of HLD, hypothyroidism, HTN brought from [facility] with worsening weakness and poor oral intake, found significantly hypothyroid without mixedema coma. C/O absent appetite and generally feeling unwell. Hypovolemia with hypotension
on admission. As per family - unintended weight loss of 30lbs over the past few months, most liekyl 2/2 poor appetite. Her PCP already scheduled outpatient CT chest/abd/pelvis - advised to keep appointment. Son verbalized agreement and understanding
of the plan. Remains medically stable for d/c, CM working with family on accepting rehab facility. Synthroid, increase dose, repeat TSH in 3-4 weeks. Cortisol test also when TSH improving
A/P:
#Progressive weakness, weight loss and appetite loss
No localizing symptoms as per patient
encourage diet
provide ensure
no high albumin/protein ratio
no reported Hx of CA
Encourage age appropriate CA screening
cortisol 8.8 - no need in additional steroids, recheck cortisol in 3-4 weeks when TSH improved
Chest XR without acute cardiopulmonary findings
UA neg for UTI
Patient does not report depression
#hypoglycemia
2/2 poor oral intake
Dextrose PRN, accuchecks AC+HS
#Protein calorie malnutrition
BMI 18.0
Ensure supplements
#Vit B deficiency
replete
multivitamin
monitor b12 q12w as outpatient
#Isolated thrombocytopenia
monitor CBC
Hematology consult:
US RUQ without acute hepatic findings
No overt DEBBIE
FOBT pending
#Bilirubinemia on admission
without abdominal pain
resolved on hydration
#Hypotension with hypovolemia
Hydrate
Hold Norvasc
#hypokalemia
replete and follow
#Poorly controlled hypothyroidism
Encourage Synthroid, increase dose, repeat TSH in 3-4 weeks
#HLD
cont simvastatin
DVT ppx hep
FUll code
I have spent at least 36min reviewing chart, test results, communication with consultants and providing direct patient care
Anticipated Discharge: > 48 hours
Subjective/Interval History
-
Date of Service: October 23, 2024
Objective Data
-
Vital Signs:
Vital Signs
Temp Pulse Resp BP Pulse Ox
97.6 F 66 17 121/70 97
10/23/24 07:00 10/23/24 07:00 10/23/24 07:00 10/23/24 07:00 10/23/24 07:00
I&O
10/22/24 10/23/24 10/24/24
06:59 06:59 06:59
Intake Total 960 / 960 1180 / 1180
Output Total 175 / 175
Balance 960 / 960 1005 / 1005
Review of Systems
-
History Source: Patient
All other systems: Reviewed and negative
Physical Exam
-
General: No Apparent Distress
HEENT: Normocephalic
Skin: Warm
Neuro: Awake, Alert, Oriented and AO x 3
Psych: Calm
--- NOTE | 2024-10-23 12:30 | CM ---
Chart reviewed and physical therapy are recommending skilled placement. accredited farm manager spoke with patient's sonColin and reviewed skilled options and he is requesting referrals to [facility] or [facility], patient's son is requesting either a [facility]
facility or a congregational facility. [facility], was discussed however they have 1 out of 5 stars and son is not sure he wants his mother to go there.
Plan; Skilled placement.
[2024-10-23 15:00] VITALS: BP 105/47
[2024-10-23 17:20] LABS: Glucose - Point of Care 140 mg/dl (70-99)
[2024-10-23 21:03] LABS: Glucose - Point of Care 117 mg/dl (70-99)
[2024-10-23 23:24] VITALS: BP 102/65
[2024-10-24] MEDS: SYNTHROID 100 MCG PO (05:05)
[2024-10-24 07:00] VITALS: BP 101/54; BP 69/43; BP 95/56; PULSE 110; PULSE 67; PULSE 87
[2024-10-24 07:49] LABS: Glucose - Point of Care 81 mg/dl (70-99)
[2024-10-24] MEDS: NSS 1000 IV (09:10)
[2024-10-24] MEDS: CYANOCOBALAMIN 1000 MCG IM (09:12)
[2024-10-24] MEDS: VITAMIN B1 100 MG PO (09:12)
[2024-10-24] MEDS: HEPARIN 5000 UNITS SC ×2 (09:12→19:22)
[2024-10-24] MEDS: FOLVITE 1 MG PO (09:12)
[2024-10-24] MEDS: LIPITOR 10 MG PO (09:12)
[2024-10-24] MEDS: THERAGRAN 1 TABLET PO (09:12)
[2024-10-24] MEDS: NSS (PRESERVATIVE FREE) 1 ML IV (10:30)
[2024-10-24] MEDS: CORTROSYN 0.25 MG IV (10:31)
[2024-10-24 10:49] LABS: ACTH Stim Cortisol 0 Min 8.4 ug/dl
--- NOTE | 2024-10-24 11:34 | W.PN.HOSP.TC ---
Today's Communication/Plan
-
ACTH stim test
Bolus
daily orthostatic VS, but patient asymptomatic
Assessment / Plan
Assessment / Plan
84yo F with PMHx of HLD, hypothyroidism, HTN brought from [facility] with worsening weakness and poor oral intake, found significantly hypothyroid without mixedema coma. C/O absent appetite and generally feeling unwell. Hypovolemia with hypotension
on admission. As per family - unintended weight loss of 30lbs over the past few months, most liekyl 2/2 poor appetite. Her PCP already scheduled outpatient CT chest/abd/pelvis - advised to keep appointment. Son verbalized agreement and understanding
of the plan. Remains medically stable for d/c, CM working with family on accepting rehab facility. Synthroid, increase dose, repeat TSH in 3-4 weeks. ACTH stim test
A/P:
#Progressive weakness, weight loss and appetite loss
No localizing symptoms as per patient
encourage diet
provide ensure
no high albumin/protein ratio
no reported Hx of CA
Encourage age appropriate CA screening
cortisol 8.8 - no need in additional steroids, recheck cortisol in 3-4 weeks when TSH improved
Chest XR without acute cardiopulmonary findings
UA neg for UTI
Patient does not report depression
#Orthostatic hypotension
possibly 2/2 poor oral intake
with low AM cortisol will check ACTH stim test to r/o adrenal insufficiency
#hypoglycemia
2/2 poor oral intake
Dextrose PRN, accuchecks AC+HS
#Protein calorie malnutrition
BMI 18.0
Ensure supplements
#Vit B deficiency
replete
multivitamin
monitor b12 q12w as outpatient
#Isolated thrombocytopenia
monitor CBC
Hematology consult:
US RUQ without acute hepatic findings
No overt DEBBIE
FOBT pending
#Bilirubinemia on admission
without abdominal pain
resolved on hydration
#Hypotension with hypovolemia
Hydrate
Hold Norvasc
#hypokalemia
replete and follow
#Poorly controlled hypothyroidism
Encourage Synthroid, increase dose, repeat TSH in 3-4 weeks
#HLD
cont simvastatin
DVT ppx hep
FUll code
I have spent at least 56min reviewing chart, test results, communication with consultants and providing direct patient care
Anticipated Discharge: > 48 hours
Subjective/Interval History
-
Date of Service: October 24, 2024
Objective Data
-
Vital Signs:
Vital Signs
Temp Pulse Resp BP Pulse Ox
98.3 F 67 17 101/54 93
10/24/24 07:00 10/24/24 07:00 10/24/24 07:00 10/24/24 07:00 10/24/24 07:00
I&O
10/23/24 10/24/24 10/25/24
06:59 06:59 06:59
Intake Total 1180 / 1180
Output Total 175 / 175
Balance 1005 / 1005
Review of Systems
-
History Source: Patient
All other systems: Reviewed and negative
Physical Exam
-
General: No Apparent Distress and Comfortable; Negative Well Nourished
HEENT: Normocephalic
Respiratory: Clear to Auscultation
GI: Soft, Nontender and Nondistended
Musculoskeletal: No Clubbing, No Cyanosis and No Edema
Skin: Warm
Neuro: Awake, Alert, Oriented and AO x 3
Psych: Calm
[2024-10-24 11:53] LABS: Glucose - Point of Care 82 mg/dl (70-99)
[2024-10-24 12:10] LABS: ACTH Stim Cortisol 30 Min 13.2 ug/dl
[2024-10-24 12:18] LABS: % Basophils 0.7 % (0-2); % Immature Granulocytes 0.7 % (0-0.5); % Monocytes 9.2 % (1.7-9.3); % Neutrophils 51.4 % (42.2-75.2); Absolute Basophils 0.1 10^3/uL (0-0.2); Absolute Eosinophils 0.2 10^3/uL (0-0.7); Absolute Immature Granulocytes 0.1 10^3/uL (0-0.05); Absolute Lymphocytes 2.6 10^3/uL (1.2-3.4); Absolute Monocytes 0.7 10^3/uL (0.1-0.6); Absolute Neutrophils 3.8 10^3/uL (1.4-6.5); Hemoglobin 12.6 g/dL (12.0-16.0); Mean Corpuscular Hgb 33.2 pg (27.0-31.0); Mean Corpuscular Volume 94.7 fL (81.0-99.0); Mean Platelet Volume 13.1 fL (7.4-10.4); Nucleated Red Blood Cells % 0 %; Platelet Count 100 10^3/uL (130-400); Red Cell Dist. Width 17.1 % (11.5-14.5); White Blood Cell Count 7.4 10^3/uL (4.8-10.8)
[2024-10-24 12:21] LABS: ALT (SGPT) < 10 U/L (0-35); AST (SGOT) 18 U/L (14-36); Albumin 3.2 g/dl (3.5-5.0); Alkaline Phosphatase 22 U/L (38-126); Blood Urea Nitrogen 6 mg/dl (7-17); Calcium 8.8 mg/dl (8.4-10.2); Carbon Dioxide 28 mmol/L (22-30); Chloride 103 mmol/L (98-107); Estimated Creatinine Clearance 52 ml/min; Glucose 98 mg/dl (70-99); Potassium 3.3 mmol/L (3.5-5.1); Sodium 138 mmol/L (135-145); Total Bilirubin 1.3 mg/dl (0.2-1.3); Total Protein 5.2 g/dl (6.3-8.2); eGFR > 60.00
[2024-10-24 12:32] VITALS: BP 113/67; BP 115/75; BP 94/56; PULSE 115; PULSE 83
[2024-10-24 12:47] LABS: ACTH Stim Cortisol 60 Min 22.4 ug/dl
[2024-10-24 13:19] LABS: Free T4 0.95 ng/dl (0.78-2.19)
[2024-10-24] MEDS: KCL 40 MEQ PO (13:32)
[2024-10-24 15:00] VITALS: BP 95/62
--- NOTE | 2024-10-24 15:59 | W.PN.UPDATE ---
Update Note
Progress Note Update
Primary adrenal insufficiency ruled out with ACTH stim test, with elevated TSH - unlikely secondary
[2024-10-24 17:10] LABS: Glucose - Point of Care 186 mg/dl (70-99)
[2024-10-24 21:42] LABS: Glucose - Point of Care 90 mg/dl (70-99)
[2024-10-24 23:20] VITALS: BP 94/55
[2024-10-25] MEDS: SYNTHROID 100 MCG PO (05:11)
[2024-10-25 07:00] VITALS: BP 137/67
[2024-10-25 08:04] LABS: Glucose - Point of Care 86 mg/dl (70-99)
[2024-10-25] MEDS: THERAGRAN 1 TABLET PO (08:19)
[2024-10-25] MEDS: VITAMIN B1 100 MG PO (08:19)
[2024-10-25] MEDS: LIPITOR 10 MG PO (08:20)
[2024-10-25] MEDS: CYANOCOBALAMIN 1000 MCG IM (08:20)
[2024-10-25] MEDS: HEPARIN 5000 UNITS SC ×2 (08:20→20:03)
[2024-10-25] MEDS: FOLVITE 1 MG PO (08:20)
[2024-10-25 12:01] LABS: Glucose - Point of Care 128 mg/dl (70-99)
--- NOTE | 2024-10-25 12:34 | CM ---
Addendum entered by Betsy Irizarry 10/25/24 15:02:
CM received call from Mckenna at [facility], will have a bed tomorrow for patient. Call to patients Colin boyd, prefers [facility] and agreeable to discharge tomorrow to SNF.
CM spoke with patients insurance, [facility], updated SNF to [facility], start date now 10/26-10/28, auth # [id number], updates to career development facilitator Nae, fax [phone]. Per insurance, patient may have a higher out of pocket cost to
[facility] SNF, patient can contact member services for further information. Per [facility], if patient admits to SNF tomorrow, do not need to submit for new auth/clinicals, if admits after 10/27, will need to submit for new
auth/clinicals. Auth provided to Mckenna at [facility], will require Covid test prior to d/c.
Plan; [facility] SNF tomorrow, auth approved, will require ambulance transport
Original Note:
CM reviewed chart, spoke with Mckenna, liaison from [facility], no beds available today, will determine if any beds for tomorrow. CM spoke with patients Colin boyd, requesting referrals to [facility] in
[place] as Colin works there. CM will update auth as appropriate SNF is found, previous auth approved beginning 10/22, w/ next review date on 10/26. Facility to fax updates to [phone].
Plan; referrals placed to [facility]- will update auth once accepting facility found.
--- NOTE | 2024-10-25 13:25 | W.PN.HOSP.TC ---
Today's Communication/Plan
-
orthostatics
Synthroid increased
dc ready
Assessment / Plan
Assessment / Plan
84yo F with PMHx of HLD, hypothyroidism, HTN brought from [facility] with worsening weakness and poor oral intake, found significantly hypothyroid without mixedema coma. C/O absent appetite and generally feeling unwell. Hypovolemia with hypotension
on admission. As per family - unintended weight loss of 30lbs over the past few months, most liekyl 2/2 poor appetite. Her PCP already scheduled outpatient CT chest/abd/pelvis - advised to keep appointment. Son verbalized agreement and understanding
of the plan. Remains medically stable for d/c, CM working with family on accepting rehab facility. Synthroid, increase dose, repeat TSH in 3-4 weeks. ACTH stim test
A/P:
#Progressive weakness, weight loss and appetite loss
-Feels better today
-possible 2/2 to age v subclinical hypothyroidism?
No localizing symptoms as per patient
encourage diet
provide ensure
no high albumin/protein ratio
no reported Hx of CA
Encourage age appropriate CA screening
cortisol 8.8 - no need in additional steroids, recheck cortisol in 3-4 weeks when TSH improved
Chest XR without acute cardiopulmonary findings
UA neg for UTI
Patient does not report depression
Increase Synthroid
PT/OT
#Orthostatic hypotension
possibly 2/2 poor oral intake
with low AM cortisol will check ACTH stim test to r/o adrenal insufficiency - WNL
?hypothyroidism
-orthostatics today,
-hold norvasc
#hypoglycemia
2/2 poor oral intake
Dextrose PRN, accuchecks AC+HS
#Protein calorie malnutrition
BMI 18.0
Ensure supplements
#Vit B deficiency
replete
multivitamin
monitor b12 q12w as outpatient
#Isolated thrombocytopenia
monitor CBC
Hematology consult
-possibly 2/2 to hypothyroidism
US RUQ without acute hepatic findings
No overt DEBBIE
#Bilirubinemia on admission
without abdominal pain
resolved on hydration
#Hypotension with hypovolemia
Hydrate
Hold Norvasc
#hypokalemia
replete and follow
#Poorly controlled hypothyroidism
Encourage Synthroid, increase dose, repeat TSH in 4-6 weeks
#HLD
cont simvastatin
DVT ppx hep
FUll code
DC ready, CM aware
Anticipated Discharge: Within 24 hours
Subjective/Interval History
-
Date of Service: October 25, 2024
no acute events
Objective Data
-
Vital Signs:
Vital Signs
Temp Pulse Resp BP Pulse Ox
97.6 F 79 16 137/67 97
10/25/24 07:00 10/25/24 07:00 10/25/24 07:00 10/25/24 07:00 10/25/24 08:20
Review of Systems
-
History Source: Patient
All other systems: Not reviewed unless documented
Physical Exam
-
General: No Apparent Distress and Comfortable; Negative Well Nourished
HEENT: Normocephalic
Respiratory: Clear to Auscultation
GI: Soft, Nontender and Nondistended
Musculoskeletal: No Clubbing, No Cyanosis and No Edema
Skin: Warm
Neuro: Awake, Alert, Oriented and AO x 3
Psych: Calm
Data Reviewed
-
Ultrasound: Report Reviewed by me
Labs: Labs Reviewed by me
[2024-10-25 14:47] VITALS: BP 127/72; PULSE 87
[2024-10-25 15:18] VITALS: BP 112/79; BP 118/67; PULSE 85; O2SAT 97
[2024-10-25 15:42] VITALS: BP 124/65
[2024-10-25 16:59] LABS: Glucose - Point of Care 154 mg/dl (70-99)
[2024-10-25 17:39] LABS: Anti-Xa Qualitative Interp Not Present (Not Present); Anticoagulant Med Neutralizati Not Performed (Not Performed); Neutralized PTT-LA Ratio Not Performed (<=1.20); Neutralized dRVTT Screen Ratio Not Performed (<=1.20); PTT-LA Ratio 1.41 (<=1.20); Prothrombin Time 15.2 s (12.0-15.5); Thrombin Time 18.7 s (<=19.5); dRVTT 1.1 Mix Ratio Not Performed (<=1.20); dRVTT Confirmation Ratio Not Performed (<=1.20); dRVTT Screen Ratio 0.83 (<=1.20)
[2024-10-25 21:19] LABS: Adrenocorticotropic Hormone 6.8 pg/mL (7.2-63.3)
[2024-10-25 21:41] LABS: Glucose - Point of Care 106 mg/dl (70-99)
[2024-10-25 23:37] VITALS: BP 117/64
[2024-10-26] MEDS: SYNTHROID 100 MCG PO (06:29)
[2024-10-26 07:08] VITALS: BP 146/84
[2024-10-26 08:03] LABS: Glucose - Point of Care 106 mg/dl (70-99)
[2024-10-26] MEDS: THERAGRAN 1 TABLET PO (08:12)
[2024-10-26] MEDS: LIPITOR 10 MG PO (08:12)
[2024-10-26] MEDS: VITAMIN B1 100 MG PO (08:12)
[2024-10-26] MEDS: FOLVITE 1 MG PO (08:12)
[2024-10-26] MEDS: HEPARIN 5000 UNITS SC (08:13)
[2024-10-26] MEDS: CYANOCOBALAMIN 1000 MCG IM (08:14)
[2024-10-26 09:37] LABS: COVID-19 Antigen Negative (Negative)
[2024-10-26 09:49] VITALS: BP 120/53; BP 124/73; BP 124/81; PULSE 112; PULSE 87; PULSE 91
--- NOTE | 2024-10-26 09:51 | CM ---
Addendum entered by Ignacio Arcos 10/26/24 11:28:
Updated report number: [phone]
Original Note:
Chart reviewed. [facility] has available bed for patient today.
COVID (-)
Patient will need ambulance transport, forms on chart
[facility]
Report: [phone]

Plan: D/c today to [facility]
[2024-10-26 10:22] LABS: Blood Urea Nitrogen 8 mg/dl (7-17); Calcium 8.8 mg/dl (8.4-10.2); Carbon Dioxide 32 mmol/L (22-30); Chloride 98 mmol/L (98-107); Estimated Creatinine Clearance 52 ml/min; Glucose 109 mg/dl (70-99); Magnesium 1.8 mg/dl (1.6-2.3); Potassium 3.7 mmol/L (3.5-5.1); Sodium 137 mmol/L (135-145); eGFR > 60.00
[2024-10-26 10:34] LABS: Hematocrit 37.7 % (37.0-47.0); Hemoglobin 13.2 g/dL (12.0-16.0); Mean Corpuscular Hgb 33.1 pg (27.0-31.0); Mean Corpuscular Volume 94.5 fL (81.0-99.0); Red Blood Cell Count 3.99 10^6/uL (4.20-5.40); White Blood Cell Count 7.3 10^3/uL (4.8-10.8)
[2024-10-26 11:32] LABS: Glucose - Point of Care 129 mg/dl (70-99)
--- NOTE | 2024-10-26 11:45 | W.PN.HOSP.TC ---
Addendum entered and electronically signed by Jose J Douglas MD 10/27/24 15:52:
[id number]
Original Note:
Today's Communication/Plan
-
b12 and Synthroid supplementation
f/u pcp within 1 week
f/u heme if continued thrombocytopenia despite normalization of b12 and thyroid levels
f/u cbc and cmp in 1 week
Assessment / Plan
Assessment / Plan
84yo F with PMHx of HLD, hypothyroidism, HTN brought from [facility] with worsening weakness and poor oral intake, found significantly hypothyroid without mixedema coma. C/O absent appetite and generally feeling unwell. Hypovolemia with hypotension
on admission. As per family - unintended weight loss of 30lbs over the past few months, most liekyl 2/2 poor appetite. Her PCP already scheduled outpatient CT chest/abd/pelvis - advised to keep appointment. Son verbalized agreement and understanding
of the plan. Remains medically stable for d/c, CM working with family on accepting rehab facility. Synthroid, increase dose, repeat TSH in 3-4 weeks. ACTH stim test
A/P:
#Progressive weakness, weight loss and appetite loss
-Feels better
-possible 2/2 to age v subclinical hypothyroidism
No localizing symptoms as per patient
encourage diet
provide ensure
no high albumin/protein ratio
no reported Hx of CA
Encourage age appropriate CA screening
cortisol 8.8 - no need in additional steroids, recheck cortisol in 3-4 weeks when TSH improved
Chest XR without acute cardiopulmonary findings
UA neg for UTI
Patient does not report depression
Increase Synthroid
PT/OT
#Orthostatic hypotension
possibly 2/2 poor oral intake
-resolved
with low AM cortisol will check ACTH stim test to r/o adrenal insufficiency - WNL
-hold norvasc
#hypoglycemia
2/2 poor oral intake
Dextrose PRN, accuchecks AC+HS
#Protein calorie malnutrition
BMI 18.0
Ensure supplements
#Vit B deficiency
replete
multivitamin
monitor b12 q12w as outpatient
#Isolated thrombocytopenia
monitor CBC
Hematology consult
-possibly 2/2 to hypothyroidism
US RUQ without acute hepatic findings
No overt DEBBIE
-if persists despite b12 and TFT normalization - f/u with heme outpt
#Bilirubinemia on admission
without abdominal pain
resolved on hydration
#Hypotension with hypovolemia
Hydrate
Hold Norvasc
#hypokalemia
replete and follow
#Poorly controlled hypothyroidism
Encourage Synthroid, increase dose, repeat TSH in 4-6 weeks
#HLD
cont simvastatin
DVT ppx hep
FUll code
More than 30 minutes spent in discharge including
Final examination of the patient
Summarizing hospital stay
Instructions for continuing care to all relevant caregivers
Preparation of discharge records, prescriptions, and referral forms
Total time spent (in minutes): 37
Anticipated Discharge: Today
Subjective/Interval History
-
Date of Service: October 26, 2024
No acute events overnight
Objective Data
-
Labs:
Laboratory Results
10/26/24
09:08
WBC 7.3
Hgb 13.2
Hct 37.7
Plt Count
Sodium 137
Potassium 3.7
Chloride 98
Carbon Dioxide 32 H
BUN 8
Creatinine 0.5 L
Glucose 109 H
Calcium 8.8
Vital Signs:
Vital Signs
Temp Pulse Resp BP Pulse Ox
97.5 F 78 18 146/84 95
10/26/24 07:08 10/26/24 07:08 10/26/24 07:08 10/26/24 07:08 10/26/24 07:08
I&O
10/25/24 10/26/24 10/27/24
06:59 06:59 06:59
Intake Total 240 / 240
Balance 240 / 240
Review of Systems
-
History Source: Patient
All other systems: Not reviewed unless documented
Physical Exam
-
General: No Apparent Distress and Comfortable; Negative Well Nourished
HEENT: Normocephalic
Respiratory: Clear to Auscultation
GI: Soft, Nontender and Nondistended
Musculoskeletal: No Clubbing, No Cyanosis and No Edema
Skin: Warm
Neuro: Awake, Alert, Oriented and AO x 3
Psych: Calm
Data Reviewed
-
Ultrasound: Report Reviewed by me
Labs: Labs Reviewed by me
--- NOTE | 2024-10-26 11:49 | W.DS.TRANS ---
Addendum entered and electronically signed by Jose J Douglas MD 10/26/24 11:52:
error - can delete
Original Note:
DC Summary - Manager Client Service
-
Discharge Instructions:
Discharge Diagnosis/Procedures
#Orthostatic hypotension
#Isolated thrombocytopenia
#Poorly controlled hypothyroidism
Diet Low Cholesterol,Low Fat
Activity As tolerated
Blood Work cbc and cmp in 1 week; Please follow up thyroid
panel in approximately 4 weeks; B12 follow up
in 12 weeks
Instructions:
Stand-Alone Forms:
Changes to Home Medications: Yes
Discharge Medications:
DC Medications w/original date entered in [employer] [facility]
simvastatin 20 mg tablet 20 mg PO DAILY High Cholesterol 10/20/24
folic acid 1 mg tablet 1 mg PO DAILY #0 tabs 10/26/24
levothyroxine 100 mcg tablet 100 mcg PO DAILY @ 0600 #0 tabs 10/26/24
mecobalamin (vitamin B12) 1,000 mcg chewable tablet (B12 Active) 1,000 mcg PO DAILY #30 tabs 10/26/24
multivitamin with folic acid 400 mcg tablet (Tab-A-Roya) 1 tab PO DAILY #0 tabs 10/26/24
thiamine mononitrate (vit B1) 100 mg tablet 100 mg PO DAILY #0 tabs 10/26/24
Home Medication Changes
levothyroxine 100 mcg tablet 100 mcg PO DAILY @ 0600 #0 tabs 10/26/24
mecobalamin (vitamin B12) 1,000 mcg chewable tablet (B12 Active) 1,000 mcg PO DAILY #30 tabs 10/26/24
multivitamin with folic acid 400 mcg tablet (Tab-A-Roya) 1 tab PO DAILY #0 tabs 10/26/24
thiamine mononitrate (vit B1) 100 mg tablet 100 mg PO DAILY #0 tabs 10/26/24
Pending Results: No
--- NOTE | 2024-10-26 11:52 | W.DS.TRANS ---
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
-
Discharge Instructions:
Discharge Diagnosis/Procedures
#Orthostatic hypotension
#Isolated thrombocytopenia
#Poorly controlled hypothyroidism
Diet Low Cholesterol,Low Fat
Activity As tolerated
Blood Work cbc and cmp in 1 week; Please follow up thyroid
panel in approximately 4 weeks; B12 follow up
in 12 weeks
Instructions:
Stand-Alone Forms:
Changes to Home Medications: Yes
Discharge Medications:
DC Medications w/original date entered in [employer]
simvastatin 20 mg tablet 20 mg PO DAILY High Cholesterol 10/20/24
cyanocobalamin (vitamin B-12) 1,000 mcg capsule 1,000 mcg PO DAILY #20 caps 10/26/24
folic acid 1 mg tablet 1 mg PO DAILY #0 tabs 10/26/24
levothyroxine 100 mcg tablet 100 mcg PO DAILY @ 0600 #0 tabs 10/26/24
multivitamin with folic acid 400 mcg tablet (Tab-A-Roya) 1 tab PO DAILY #0 tabs 10/26/24
thiamine mononitrate (vit B1) 100 mg tablet 100 mg PO DAILY #0 tabs 10/26/24
Home Medication Changes
cyanocobalamin (vitamin B-12) 1,000 mcg capsule 1,000 mcg PO DAILY #20 caps 10/26/24
folic acid 1 mg tablet 1 mg PO DAILY #0 tabs 10/26/24
levothyroxine 100 mcg tablet 100 mcg PO DAILY @ 0600 #0 tabs 10/26/24
multivitamin with folic acid 400 mcg tablet (Tab-A-Roya) 1 tab PO DAILY #0 tabs 10/26/24
thiamine mononitrate (vit B1) 100 mg tablet 100 mg PO DAILY #0 tabs 10/26/24
Pending Results: No
== END 2024-10-26 15:09 ==
LOC: 4 WEST ACU 01:18
PROVIDERS: Emergency Medicine; Internal Medicine; Nurse Practitioner Acute Care; ADMITTING PHYSICIAN Internal Medicine; ATTENDING PHYSICIAN Internal Medicine; CONSULT PHYSICIAN Internal Medicine Hematology & Oncology; EMERGENCY PHYSICIAN Emergency Medicine; FAMILY PHYSICIAN Internal Medicine
DX: I95.1 Orthostatic hypotension (principal); E46 Unspecified protein-calorie malnutrition; D69.6 Thrombocytopenia, unspecified; D64.9 Anemia, unspecified; E86.0 Dehydration; E53.8 Deficiency of other specified B group vitamins; E89.0 Postprocedural hypothyroidism; Z68.1 Body mass index [BMI] 19.9 or less, adult; E86.1 Hypovolemia; E87.6 Hypokalemia; Z79.899 Other long term (current) drug therapy
CPT/HCPCS: 70450; 71046; 76700; 80048; 80053; 81003; 82024; 82248; 82533; 82607; 82728; 82746; 82962; 83036; 83540; 83550; 83735; 84100; 84439; 84443; 85025; 85027; 85045; 85384; 85520; 85598; 85610; 85613; 85670; 85730; 87070; 87811; 93005; 96360; 97116; 97163; 97167; 97530; 99285; G0378